=== PATIENT | male | born 1990 | race Caucasian/White ===

== ENCOUNTER 2017-07-11 10:50 | Emergency (ER) | payer OTHER ==
[~2017-07-11] VITALS: Ht 175.3 cm; Wt 72.5 kg
[~2017-07-11 10:50] MED LIST: Z.0.NO CURRENT MEDS
[2017-07-11 10:51] VITALS: BP 128/77; PULSE 78; RESP 16; TEMP 98.6; O2SAT 98
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
[2017-07-11] MEDS ORDERED: ROBA500T PO (11:57)
[2017-07-11] MEDS ORDERED: IBUP800T23 PO (11:57)
[2017-07-11] MEDS ORDERED: IBUPROFEN 800 MG TAB PO ONE (12:00)
[2017-07-11] MEDS ORDERED: METHOCARBAMOL 500 MG TAB PO ONE (12:00)
== END 2017-07-11 12:39 | disposition home or self-care (01) ==
LOC: NEPK 10:50
DX: S39.012A Strain of muscle, fascia and tendon of lower back, initial encounter (principal); R51 Headache; F17.200 Nicotine dependence, unspecified, uncomplicated; V49.9XXA Car occupant (driver) (passenger) injured in unspecified traffic accident, initial encounter
CPT/HCPCS: 99283